=== PATIENT | female | born 1995 | race Caucasian/White ===

== ENCOUNTER 2018-02-11 13:48 | Emergency (ER) | payer BC, OTHER ==
[2018-02-11 14:14] VITALS: BP 105/57
--- NOTE | 2018-02-11 15:16 | UC ---
UC General HPI - HPI Summary HPI Summary: pt c/o a few days of painful-swollen tonsils. now, glands are swollen and she has a headache and mm soreness. - History of Current Complaint Chief Complaint: UCGeneralIllness Stated Complaint: SWOLLEN TONSILS Time Seen by Provider: 02/11/18 14:25 Hx Obtained From: Patient Hx Last Menstrual Period: "Like, a month ago" Onset/Duration: Gradual Onset Timing: Constant Pain Intensity: 5 Alleviating: nothing - Allergy/Home Medications Allergies/Adverse Reactions: Allergies Allergy/AdvReac Type Severity Reaction Status Date / Time No Known Allergies Allergy Verified 02/11/18 14:05 Home Medications: Home Medications Norethindrone-E.estradiol-Iron [Taytulla 1 mg-20 Mcg Capsule] 1 each PO DAILY [History Confirmed 02/11/18] PMH/Surg Hx/FS Hx/Imm Hx Previously Healthy: Yes - Surgical History Surgical History: Yes Surgery Procedure, Year, and Place: Left Shoulder - Family History Known Family History: Positive: None - Social History Occupation: Employed Full-time Alcohol Use: None Substance Use Type: None Smoking Status (MU): Never Smoked Tobacco - Immunization History Vaccination Up to Date: Yes Review of Systems ENT: Sore Throat Musculoskeletal: Myalgia Is Patient Immunocompromised?: No All Other Systems Reviewed And Are Negative: Yes Physical Exam Triage Information Reviewed: Yes Appearance: Well-Appearing Vital Signs: Initial Vital Signs Temp 99.1 F 02/11/18 14:04 Pulse 92 02/11/18 14:04 Resp 16 02/11/18 14:04 BP 105/57 02/11/18 14:04 Pulse Ox 100 02/11/18 14:04 Vital Signs Reviewed: Yes Eyes: Positive: Conjunctiva Clear ENT: Positive: Pharyngeal erythema, TMs normal, Tonsillar swelling, Tonsillar exudate, Uvula midline. Negative: Nasal congestion, Nasal drainage, Trismus, Muffled voice, Hoarse voice Neck: Positive: Supple, Tenderness @ - peritonsilar nodes, Enlarged Nodes @ - peritonsilar Respiratory: Positive: Lungs clear, Normal breath sounds Cardiovascular: Positive: RRR, No Murmur Abdomen Description: Positive: Nontender, No Organomegaly, Soft Bowel Sounds: Positive: Present Musculoskeletal: Positive: ROM Intact Neurological: Positive: Alert Psychological: Positive: Age Appropriate Behavior Skin Exam: Normal Diagnostics - Laboratory Diagnostic Studies Completed/Ordered: 2 different throat swabs run 3 times gave "invalid result". given pt hx and pe plus worsening, I am going to start presumptive tx for strep throat with pcn. no concer for mono. Course/Dx - Differential Dx - Multi-Symptom Provider Diagnoses: Tonsillitis Discharge - Sign-Out/Discharge Documenting (check all that apply): Patient Departure All imaging exams completed and their final reports reviewed: No Studies - Discharge Plan Condition: Stable Disposition: HOME Prescriptions: Penicillin VK 500 MG TAB(NF) [Penicillin VK 500 mg Tab] 500 mg PO BID 10 Days # 20 tab Patient Education Materials: Tonsillitis (ED) Referrals: KING Larkin [Medical Doctor] - 7 Days - Billing Disposition and Condition Condition: STABLE Disposition: Home
== END 2018-02-11 15:24 | disposition home or self-care (01) ==
LOC: UCCORT 13:48
DX: J03.90 Acute tonsillitis, unspecified (principal)
CPT/HCPCS: 99202; G0463

== ENCOUNTER 2018-05-25 09:02 | Emergency (ER) | payer OTHER ==
--- NOTE | 2018-05-25 09:31 | UC ---
Throat Pain/Nasal Omar HPI - HPI Summary HPI Summary: Patient presents to urgent care with 36 hours of progressive sore throat and painful swallowing. Patient states she feels febrile and has fatigue. Patient also reports right ear pain. Patient with some nasal congestion and postnasal drip. Patient denies sick contacts although she works in a [place]. Patient without any rashes. Patient without any nausea vomiting. No chest pain shortness of breath or cough. No rashes. Patient states she took some Violeta-[place] cold in the middle the night with little improvement. No antipyretics since. Patient states she spits sputum because it hurts to swallow although she is able to swallow. Patient is chewing ice chips in the room. Denies pt's medications reviewed this visit - History of Current Complaint Chief Complaint: UCRespiratory Stated Complaint: SORE THROAT Time Seen by Provider: 05/25/18 09:25 Hx Obtained From: Patient Hx Last Menstrual Period: HAS BEEN SPOTTING SINCE NEXPLAMON WAS STARTED IN LATE MAR. ?: No Onset/Duration: Gradual Onset Severity: Moderate Pain Intensity: 9 Pain Scale Used: 0-10 Numeric Cough: Nonproductive - Allergies/Home Medications Allergies/Adverse Reactions: Allergies Allergy/AdvReac Type Severity Reaction Status Date / Time No Known Allergies Allergy Verified 05/25/18 09:12 Home Medications: Home Medications Chlorphenir/Phenyleph/Aspirin [Violeta-[place] Plus Cold 2-7.8-325 mg] 1 tab PO PRN 05/25/18 [History] Etonogestrel [Nexplanon] 68 mg IMPLANT 05/25/18 [History] PMH/Surg Hx/FS Hx/Imm Hx Previously Healthy: Yes - Surgical History Surgical History: Yes Surgery Procedure, Year, and Place: Left Shoulder - Family History Known Family History: Positive: Non-Contributory - Social History Occupation: Employed Full-time Lives: With Family Alcohol Use: Occasionally Substance Use Type: None Smoking Status (MU): Never Smoked Tobacco - Immunization History Vaccination Up to Date: Yes Review of Systems All Other Systems Reviewed And Are Negative: Yes Constitutional: Positive: Fever, Fatigue ENT: Positive: Sore Throat, Sinus Congestion Physical Exam - Summary Physical Exam Summary: .Vital Signs Reviewed: Yes A+Ox3, tied appearing,spitting secretions Eyes: Conjunctiva Clear, LARUEN. EOM intact and full ENT: Hearing grossly normal,right TM ++ fluid,erythema left TM wnl, turbinates inflammed, mmpasty, lips dry, uvula midline, tonsils enlarged, b/l exudate, erythema, symmetric Neck: Positive: Supple, + lymphadenopathy submandibular Respiratory: Positive: No respiratory distress, No accessory muscle use + CTA throughout no w/r Cardiovascular: RRR nl s1, s2 no m/r CBT <2 sec, borderline tachy abd soft + BS nt/nd no guarding, no distension Musculoskeletal Exam: PATEL x 4 without difficulty Strength Intact, ROM Intact Neurological: Positive: Alert, + sensation throughout Psychological: Positive: Normal Response To Family Skin: Positive: no rash, no ecchymosis Triage Information Reviewed: Yes Vital Signs: Initial Vital Signs Temp 100.5 F 05/25/18 09:14 Pulse 114 05/25/18 09:14 Resp 20 05/25/18 09:14 BP 104/61 05/25/18 09:14 Pulse Ox 99 05/25/18 09:14 Re-Evaluation - Re-Evaluation First Eval Change: Improved Comment: Pt stats pain feeling better, pain 4/10. still with low grade temp. hr improved. will given APAP, claudy elvin and lidocaine Second Eval Re-Evaluation Time: 11:54 Change: Improved Comment: Pt states feeling better. sitting up on stretcher - on cell phone. speaking full easy sentences. pt did not like lidocaine. Will Rx omnice. pred. hydrate. secretion precaution. return precaution. pt aware labs pending Throat Pain/Nasal Course/Dx - Course Course Of Treatment: Patient presents with sore throat head congestion and low- grade fever and fatigue starting 36 hours ago. Patient reports painful swallowing. Patient denies nausea vomiting. Patient is not taken any analgesia or antipyretics since this morning at 3 AM. Patient reports painful swallowing. No difficulty breathing. On exam vital signs reviewed and showed a slightly elevated fever and heart rate. On exam patient with large inflamed tonsils with exudate however they are symmetric. Patient also with right otitis media. Discussed with patient options. We'll place an IV and give liter fluid. We'll give Solu-Medrol as well as Toradol. Anticipate discharge with antibiotics to cover her ear and throat. We'll check a CBC and mono as other potential etiologies. Patient should comfortable in agreement with plan. Will closely monitor. We'll write notes for work. - Differential Dx/Diagnosis Provider Diagnosis: Otitis media, right, Pharyngitis Discharge - Sign-Out/Discharge Documenting (check all that apply): Patient Departure All imaging exams completed and their final reports reviewed: No Studies - Discharge Plan Condition: Stable Disposition: HOME Prescriptions: Cefdinir [Cefdinir 300 MG CAP] 300 mg PO BID #20 capsule Fluconazole [Diflucan 150 MG (NF)] 150 mg PO ONCE PRN #1 tab PRN Reason: vaginal yeast infection predniSONE TAB* [Deltasone TAB*] 50 mg PO DAILY #4 tab Patient Education Materials: Pharyngitis (ED), Ear Infection (ED) Forms: *Gen. Provider Communication, *Work Release Referrals: [facility] [Outside] No Primary Care Phys,NOPCP [Primary Care Provider] - Additional Instructions: - Okay to alternate ibuprofen (Advil, Motrin)600mg and Tylenol every 3 hours for pain. Take with food. Do NOT take for more than 4-5 days - Okay to gargle and spit warm salt water every 4 hours as needed for pain - Stay well hydrated - frequent sips of cold fluids will be soothing to your throat (popsicles, jello, ice cream, ice water). Avoid excess caffeine until your symptoms have resolved. -Throat infections are spread by oral secretions - do not share eating or drinking utensils until you symptoms are resolved. Clean items that may get your secretions such as cell phones, ipads, computer mouse, television remotes. Once you have been on antibiotics for 2 days, change your toothbrush and your pillowcase. -Take prednisone daily as prescribed starting tomorrow - Humidify the air in the room where you sleep - boil water, run a hot steam shower, vaporizer, cups of water by heat register - Okay to take over the counter cough and decongestant medication - You had bloodwork drawn today - this may take 4-5 days to come back. You will receive a call from a care steam tank operator if you need a change to your treatment -you have been given a prescription for a vaginal yeast infection - okay to take as needed for vaginal infection following antibiotics - Contact your doctor, return here, or go to the emergency department with any questions or concerns - Billing Disposition and Condition Condition: STABLE Disposition: Home
[2018-05-25] MEDS ORDERED: methylPREDNISolone 125 MG* 2 ML VIAL IV ONE (09:38)
[2018-05-25] MEDS ORDERED: Ketorolac INJ* 30 MG/ML 1 ML VIAL IV PUSH ONE (09:38)
[2018-05-25] MEDS ORDERED: NS 0.9% 1000 ML* 1,000 ML IV ONE (09:38)
[2018-05-25] MEDS ORDERED: Lidocaine 2% VISCOUS* 15 ML UDC PO ONE (10:50)
[2018-05-25 10:57] VITALS: BP 105/59
[2018-05-25] MEDS ORDERED: Acetaminophen ADULT LIQ* 650 MG/20.3 ML UDC PO ONE (11:04)
[2018-05-25 13:37] LABS: ABS Basophils 0.1 10^3/ul (0-0.2); ABS Eosinophils 0 10^3/ul (0-0.6); ABS Lymphocytes 0.8 10^3/ul (1.0-4.8); ABS Neutrophils 11.3 10^3/ul (1.5-7.7); ABS Nucleated RBC 0 10^3/ul; Eosinophil % 0.1 %; Hematocrit 40 % (35-47); Hemoglobin 13.4 g/dl (12.0-16.0); Lymphocyte % 5.9 %; Mean Corpuscular HGB Conc 34 g/dl (31-36); Mean Corpuscular Hemoglobin 29 pg (27-31); Mean Corpuscular Volume 86 fL (80-97); Mean Platelet Volume 10.1 fL (7.4-10.4); Nucleated Red Blood Cells % 0; Platelet Count 175 10^3/ul (150-450); Red Blood Count 4.64 10^6/ul (4.00-5.40); Red Cell Distribution Width 14 % (10.5-15); White Blood Count 13.2 10^3/ul (3.5-10.8)
== END 2018-05-25 12:00 | disposition home or self-care (01) ==
LOC: UCCORT 09:02
DX: H66.91 Otitis media, unspecified, right ear (principal); J02.9 Acute pharyngitis, unspecified
CPT/HCPCS: 36415; 85025; 86308; 86664; 86665; 87651; 96361; 96374; 96375; 99212; A9270-GY; G0463; J1885; J2930

== ENCOUNTER 2019-01-24 14:00 | Emergency (ER) | payer OTHER ==
[2019-01-24 14:19] VITALS: BP 92/56
--- NOTE | 2019-01-24 14:28 | UC ---
UC General HPI - HPI Summary HPI Summary: 2 DAY HX OF R EAR PAIN. NO FEVER, URI OR DRAINAGE. - History of Current Complaint Chief Complaint: UCEar Stated Complaint: RIGHT EAR CONCERN Time Seen by Provider: 01/24/19 14:23 Hx Obtained From: Patient Hx Last Menstrual Period: "last week, two weeks ago ... " Onset/Duration: Gradual Onset Timing: Constant Pain Intensity: 6 Associated Signs & Symptoms: Positive: Headache - YESTERDAY. Negative: Edema - Allergy/Home Medications Allergies/Adverse Reactions: Allergies Allergy/AdvReac Type Severity Reaction Status Date / Time No Known Allergies Allergy Verified 01/24/19 14:14 Home Medications: Home Medications Ibuprofen TAB* [Advil TAB*] 600 mg PO Q6H PRN 01/24/19 [History Confirmed ] PMH/Surg Hx/FS Hx/Imm Hx Previously Healthy: Yes - Surgical History Surgical History: Yes Surgery Procedure, Year, and Place: [facility], 2008 - Family History Known Family History: Positive: None, Non-Contributory - Social History Alcohol Use: Occasionally Substance Use Type: None Smoking Status (MU): Never Smoked Tobacco - Immunization History Vaccination Up to Date: Yes Review of Systems All Other Systems Reviewed And Are Negative: Yes Constitutional: Negative: Fever, Chills Skin: Negative: Rash ENT: Positive: Ear Ache - R. Negative: Sore Throat, Nasal Discharge Physical Exam Triage Information Reviewed: Yes Appearance: Well-Appearing Vital Signs: Initial Vital Signs Temp 98.7 F 01/24/19 14:16 Pulse 86 01/24/19 14:16 Resp 18 01/24/19 14:16 BP 92/56 01/24/19 14:16 Pulse Ox 97 01/24/19 14:16 Vital Signs Reviewed: Yes Eyes: Positive: Conjunctiva Clear ENT: Positive: Pharynx normal, TMs normal - L. R IS YELLOW AND BULGING, Uvula midline, Other - NO AURICULAR [id number] OR MASTOID TENDERNESS.. Negative: Nasal congestion, Nasal drainage, Trismus, Muffled voice Neck: Positive: Supple, Nontender, No Lymphadenopathy Respiratory: Positive: No respiratory distress Neurological: Positive: Alert Psychological: Positive: Age Appropriate Behavior Skin Exam: Normal Skin: Negative: Rashes Course/Dx - Diagnoses Provider Diagnosis: Otitis media Discharge - Sign-Out/Discharge Documenting (check all that apply): Patient Departure All imaging exams completed and their final reports reviewed: No Studies - Discharge Plan Condition: Stable Disposition: HOME Prescriptions: Amoxicillin PO (*) [Amoxicillin 875 MG (*)] 875 mg PO BID 10 Days #20 tab Patient Education Materials: Ear Infection (ED) Referrals: KING Larkin [Medical Doctor] - 02/03/19 - Billing Disposition and Condition Condition: STABLE Disposition: Home
== END 2019-01-24 14:35 | disposition home or self-care (01) ==
LOC: UCCORT 14:00
DX: H66.91 Otitis media, unspecified, right ear (principal)
CPT/HCPCS: 99212; G0463

== ENCOUNTER 2019-07-15 17:28 | Emergency (ER) | payer OTHER ==
[2019-07-15 18:12] VITALS: BP 111/59
--- NOTE | 2019-07-15 18:24 | UC ---
Respiratory Complaint HPI - HPI Summary HPI Summary: 5 days of intense sinus pressure and pain , states teeth hurt to eat. touching her face makes it worse. nothing makes it better - History of Current Complaint Chief Complaint: UCGeneralIllness Stated Complaint: SINUS COMPLAINT Time Seen by Provider: 07/15/19 18:19 Hx Obtained From: Patient Hx Last Menstrual Period: 06/29/19 Pain Intensity: 7 Pain Scale Used: 0-10 Numeric - Allergies/Home Medications Allergies/Adverse Reactions: Allergies Allergy/AdvReac Type Severity Reaction Status Date / Time No Known Allergies Allergy Verified 07/15/19 18:12 Home Medications: Home Medications guaiFENesin ER TAB [Mucinex*] 600 mg PO BID 07/15/19 [History Confirmed 07/15/19 ] PMH/Surg Hx/FS Hx/Imm Hx - Surgical History Surgical History: Yes Surgery Procedure, Year, and Place: [facility], 2008 - Family History Known Family History: Positive: None, Non-Contributory - Social History Alcohol Use: Occasionally Substance Use Type: None Smoking Status (MU): Never Smoked Tobacco - Immunization History Vaccination Up to Date: Yes Review of Systems All Other Systems Reviewed And Are Negative: Yes Constitutional: Negative: Fever, Chills, Fatigue ENT: Positive: Dental Pain, Sinus Congestion, Sinus Pain/Tenderness. Negative: Sore Throat, Nasal Discharge Respiratory: Negative: Cough Neurological: Positive: Headache Physical Exam Triage Information Reviewed: Yes Appearance: Well-Appearing, Pain Distress Vital Signs: Initial Vital Signs Temp 98.5 F 07/15/19 18:08 Pulse 86 07/15/19 18:08 Resp 16 07/15/19 18:08 BP 111/59 07/15/19 18:08 Pulse Ox 100 07/15/19 18:08 Vital Signs Reviewed: Yes Eyes: Positive: Conjunctiva Clear ENT: Positive: Pharynx normal, Nasal congestion, TMs normal, Sinus tenderness - bilat L>R Neck: Positive: Supple, Nontender, No Lymphadenopathy Respiratory: Positive: No respiratory distress Respiratory Course/Dx - Course Course Of Treatment: sinusitis in a pt. who is clearly in pain. assoc. w/ dental pain and on exam there was tenderness so will tx w/ antibx. good vitals - Differential Dx/Diagnosis Differential Diagnosis/HQI/PQRI: Sinusitis, Other Provider Diagnosis: Sinusitis Discharge ED - Sign-Out/Discharge Documenting (check all that apply): Patient Departure All imaging exams completed and their final reports reviewed: No Studies - Discharge Plan Condition: Good Disposition: HOME Prescriptions: Amoxicillin/Clavulanate TAB* [Augmentin TAB 500 mg*] 500 mg PO BID 7 Days #14 tab Patient Education Materials: Sinusitis (ED) Referrals: No Primary Care Phys,NOPCP [Primary Care Provider] - Additional Instructions: If worsening please follow up with your primary care. - Billing Disposition and Condition Condition: GOOD Disposition: Home - Attestation Statements Provider Attestation: Per institutional requirements, I have reviewed the chart, however, I was not consulted specifically or made aware of this patient by the midlevel provider. I did not personally evaluate, interact with, or disposition this patient. EK
[2019-07-15] MEDS ORDERED: Ibuprofen TAB* 600 MG PO ONE (18:37)
[2019-07-15] MEDS ORDERED: Amoxicillin/Clavulanate TAB* 250 MG PO ONE (18:37)
== END 2019-07-15 18:50 | disposition home or self-care (01) ==
LOC: UCCORT 17:28
DX: J32.9 Chronic sinusitis, unspecified (principal)
CPT/HCPCS: 99212; A9270-GY; G0463